=== PATIENT | male | born 1985 | race Two or more races ===

== ENCOUNTER 2023-09-05 15:43 | Emergency (ER) | payer OTHER ==
[~2023-09-05] VITALS: Ht 167.6 cm; Wt 68.0 kg
[2023-09-05] MEDS ORDERED: IBUP-1456 PO (20:56)
[2023-09-05 20:57] VITALS: BP 121/80; PULSE 69; RESP 18; TEMP 98; O2SAT 100
== END 2023-09-05 20:56 | disposition home or self-care (01) ==
LOC: ER 15:43
DX: S83.91XA Sprain of unspecified site of right knee, initial encounter (principal); F17.210 Nicotine dependence, cigarettes, uncomplicated; F12.10 Cannabis abuse, uncomplicated; W18.09XA Striking against other object with subsequent fall, initial encounter; Y93.02 Activity, running; Y92.89 Other specified places as the place of occurrence of the external cause; Y99.8 Other external cause status
CPT/HCPCS: 73562